=== PATIENT | female | born 1950 | race Caucasian/White ===

== ENCOUNTER 2018-05-27 14:27 | Outpatient (REF) | payer MEDICARE, BC, SELFPAY ==
--- NOTE | 2018-05-27 13:00 | PAPFT_PTH ---
PATIENT: Ami Granger LOC: [facility] U#:[id number] AGE/SX: 67/F ROOM: RE05/27/[address]: Mariely Uribe MD : [id number] BED: DIS: 05/27/2018 SPEC #: [id number] RECD: 05/28/18 12:56 STATUS: DEISY BROCK #: [id number] ISAC: 05/27/18 13:[address]: Mariely Uribe DEPT: [facility] Cytology RECD BY: Sandra Matthews Tissues: 1 - CX/ENDOCX FOR PAP SMEARS Procedures: PAP THIN PREP/UVM Screening HPV DNA PROBE Comments: [id number]
== END 2018-05-27 14:47 ==
LOC: LBN 14:27
PROVIDERS: PCP Family Medicine; Visit Provider Family Medicine
DX: Z12.4 Encounter for screening for malignant neoplasm of cervix (principal); Z11.51 Encounter for screening for human papillomavirus (HPV)
CPT/HCPCS: 88142; 87624

== ENCOUNTER 2019-08-24 01:09 | Outpatient (CLI) | payer MEDICARE, BC, SELFPAY ==
--- NOTE | 2019-08-24 07:45 | DI.MAMMO_ITS ---
EXAM: MAMMO SCREENING CLINICAL HISTORY: screening,Z12.39 TECHNIQUE: Mammograms were interpreted according to the usual protocol including computer analysis w [employer] CAD system, tomosynthesis and C-view imaging. COMPARISON: 2011 through 2016 FINDINGS: The breasts are composed of heterogeneously dense fibroglandular densities, Breast Density category C . No suspicious masses or suspicious microcalcifications are seen. No skin thickening or abnormal axillary lymph nodes are seen. There has been no significant change from prior exams. IMPRESSION: BI-RADS Category 1: Negative mammogram. Yearly screening mammography is recommended. Breast density category C, heterogeneously dense tissue which decreases the sensitivity of the mammog delbert. The mammogram demonstrates the patient's breast tissue is dense. Dense breast tissue is very common a nd is not abnormal but dense breast tissue can make it harder to find cancer on a mammogram. Also, de nse breast tissue may increase breast cancer risk. This information about the result of the mammogram report was provided to the patient to raise their awareness. Use this report when you speak with the patient about their risks for breast cancer, which includes their family history. At that time, you may recommend additional screening tests (Ultrasound or MRI) as they might be useful based on their r isk. A negative radiographic report should not delay biopsy if a dominant or clinically suspicious mass is present. Up to ten percent of cancers are not identified on mammography. A negative report may reinforce clinical impression. Adenosis and dense breasts may obscure an underlying neoplasm. False positive reports average 6 to 10%.
== END 2019-08-24 01:29 ==
PROVIDERS: PCP Family Medicine; Visit Provider Family Medicine
DX: Z12.31 Encounter for screening mammogram for malignant neoplasm of breast (principal)
CPT/HCPCS: 77063; 77067

== ENCOUNTER 2019-11-24 03:36 | Outpatient (CLI) | payer MEDICARE, BC, SELFPAY ==
[2019-11-24 12:54] LABS: Abs Immature Grans 0.01 10^3/uL (0.0-0.06); Absolute Basophil Count 0.12 10^3/uL (0.0-0.2); Absolute Eosinophil Count 0.14 10^3/uL (0.0-0.7); Absolute Lymphocyte Count 2.44 10^3/uL (1.2-3.4); Absolute Monocyte Count 0.43 10^3/uL (0.1-0.8); Absolute Neutrophil Count 2.02 10^3/uL (1.2-6.7); Basophils % 2.3; Eosinophils % 2.7; HCT 43.1 % (36.0-46.0); HGB 14.2 g/dL (11.2-15.7); Immature Grans % 0.2; Lymphocytes % 47.3; MCH 30.5 pg (27.0-33.0); MCHC 32.9 % (32.0-36.0); MCV 92.5 fL (80-95); MPV 10.9 fL (8.0-11.0); Monocytes % 8.3; Neutrophils % 39.2; Nucleated RBC 0 %; Platelet Count 318 10^3/uL (130-400); RBC 4.66 10^6/uL (3.93-5.22); RDW 12.3 % (11.7-14.6); RDW-SD 42.2 fL; WBC 5.16 10^3/uL (4.4-10.8)
[2019-11-24 13:30] LABS: ALT 19 U/L (14-59); AST 13 U/L (15-37); Albumin 4.1 g/dL (3.4-5.0); Alkaline Phosphatase 52 U/L (46-116); Anion Gap 6.6 mmol/L (3-11); BUN 19 mg/dL (7-18); Bilirubin, Total 0.5 mg/dL (0.2-1.0); CO2 27.4 mmol/L (21.0-32.0); CREATININE 0.69 mg/dL (0.55-1.02); Calcium 9.2 mg/dL (8.5-10.1); Chloride 106 mmol/L (98-107); Glucose 96 mg/dL (74-106); Potassium 4.5 mmol/L (3.5-5.1); Sodium 140 mmol/L (136-145)
[2019-11-24 14:13] LABS: ESR 9 mm/hr (0-30)
== END 2019-11-24 03:56 ==
PROVIDERS: PCP Family Medicine; Visit Provider Family Medicine
DX: R42 Dizziness and giddiness (principal); R03.0 Elevated blood-pressure reading, without diagnosis of hypertension; H55.00 Unspecified nystagmus
CPT/HCPCS: 36415; 80053; 85652; 85025

== ENCOUNTER 2019-11-29 02:16 | Outpatient (CLI) | payer MEDICARE, BC, SELFPAY ==
--- NOTE | 2019-11-29 07:00 | DI.MRI_ITS ---
EXAM: MR BRAIN WO CLINICAL HISTORY: vetigo with vertical nystagmus and ataxia, dizziness/giddiness, H55.00 TECHNIQUE: Multiplanar multisequence MRI of the brain was performed. COMPARISON: No exams were available for comparison FINDINGS: VENTRICLES AND EXTRA AXIAL SPACES: Normal in size and morphology for the patient's age. MIDLINE SHIFT: None. CEREBRAL PARENCHYMA: No focus of restricted diffusion to suggest acute infarct. No space-occupying le severino identified. HEMORRHAGE: None. BRAINSTEM/CEREBELLUM: Normal. CALVARIUM: Normal. VISUALIZED PARANASAL SINUSES/MASTOIDS:Clear. NIGHTMUTE OF AVERY: Normal flow void. PITUITARY GLAND: Unremarkable. OTHER FINDINGS: Posterior to the left pterygoid and left mandible there is an area which shows increa sed signal on the T2 weighted images and decreased signal on the T1 weighted images. It shows no fat suppression. There is minimal mass effect on the surrounding tissues. It extends laterally into th e region of the parotid gland. The adjacent musculature and osseous structures are unremarkable. IMPRESSION: 1. No acute intracranial process. No evidence of an acute infarct or intracranial mass. 2. Area in the extracranial soft tissues on the left as described above. Postcontrast MRI of the bra in is recommended for further evaluation. DATA REPOSITORY:
== END 2019-11-29 02:36 ==
PROVIDERS: PCP Family Medicine; Visit Provider Family Medicine
DX: R42 Dizziness and giddiness (principal); H55.00 Unspecified nystagmus
CPT/HCPCS: 70551

== ENCOUNTER 2020-02-16 00:21 | Outpatient (CLI) | payer MEDICARE, BC, SELFPAY ==
[2020-02-18 20:51] LABS: Patient Race White; SARS-CoV-2 RNA Undetected (Undetected); SARS-CoV-2 Specimen Source Nasal
== END 2020-02-16 00:41 ==
PROVIDERS: Family Medicine; PCP Family Medicine; Visit Provider Family Medicine
DX: Z11.59 Encounter for screening for other viral diseases (principal)
CPT/HCPCS: U0003

== ENCOUNTER 2020-06-01 03:40 | Outpatient (CLI) | payer MEDICARE, BC, SELFPAY ==
[2020-06-02 14:42] LABS: COVID-19 RT-PCR UVMMC Result Negative (Negative)
== END 2020-06-01 03:41 | disposition home or self-care (01) ==
LOC: LBO 03:41
PROVIDERS: PCP Family Medicine; Visit Provider Family Medicine
DX: Z20.822 Contact with and (suspected) exposure to COVID-19 (principal)
CPT/HCPCS: U0003; U0005

== ENCOUNTER 2020-06-19 17:28 | Emergency (ER) | payer MEDICARE, BC, SELFPAY ==
[2020-06-19] VITALS (13 sets, daily range): BP systolic 153–189; BP diastolic 68–92; PULSE 54–69; RESP 18–20; TEMP 36.9; O2SAT 89–100
--- NOTE | 2020-06-19 17:30 | RT.EKG_ITS ---
APPROVED REPORT Exam: Resting ECG Patient Location: E HR:61 bpm ECG Measurements Heart Rate 61 AXIS MN 147 P 43 QRSd 94 QRS 10 QT 424 T 17 QTc 427 Conclusion Sinus rhythm...normal P axis, V-rate 60- 99. Less than 1mm ST depression in V6. No STEMI. I have reviewed and interpreted ECG and agree with software generated interpretation.
--- NOTE | 2020-06-19 17:32 | ED.GENADUL_ITS ---
Discharge Plan Disposition Patient Disposition: HOME Condition: Stable Discharge Details Clinical Impression: Elevated BP without diagnosis of hypertension Primary Care Provider: Mariely Uribe ED Provider: Brenda Urena Home Meds and New Rx's Prescriptions: Continued timolol 0.25 % drops 1 drp OP BID RF: 0 Discharge Instructions Instructions: Stress (ED), How to Take a Blood Pressure (ED), Hypertension (ED) Additional Instructions: Your blood pressure came down quite a bit when you are relaxing. I am concerned that the elevation may be associated with stress and anxiety. Please try to find outlets to help reduce your stress. Please enjoy this neena weather. Please continue to take your blood pressure as was instructed by your primary care physician but trying states he has at times when you are more relaxed. Please call them tomorrow to discuss your visit today as well as your recent blood pressure readings and the possible need for antihypertensive medication. If you develop fevers/chills, headaches, visual changes, chest pain, shortness of breath or other new/worsening symptoms please seek care urgently once again. Referrals: Mariely Uribe MD [Primary Care Provider] - Medical Decision Making Patient is a pleasant 59-year-old female presenting today with chief complaint of hypertension. Patient has been being followed by primary care for elevated blood pressure and was advised at recent visit to continue to monitor this at home. Per recent primary care note, the patient blood pressure when at home is typically fairly well controlled with systolics typically in the 130s and diastolics in the 70s to 80s. Blood pressure in the office at recent visit was 153/93 with previous readings between 143/85, 169/82. Patient states that she tends to get very anxious and panic when she does see a physician as she has not been followed by physician routinely throughout her life. She does report a number of family members with hypertension. She states that recently she has been very stressed and associates this with COVID-19 and limited access to her family as well as family members being sick. Patient also reports that she recently got her initial vaccine which is also made her very anxious. She denies any visual changes, change in urinary habits, headaches. She does state that she is been having some chest pressure and indicates the central aspect of her chest. She states that this does feel like GERD that she has had historically. However, she is found to have this more when she is stressed such as when she can go to sleep first wakes in the morning. She states that during these times, she can become very anxious and is actually having difficulty falling asleep. Pain does not radiate. No palpitations. No nausea or vomiting. No change in appetite. No change in weight. On exam, patient appears anxious. Her initial blood pressure was 189/92. She is currently asymptomatic. Exam is reassuring, lungs are clear, normal cardiac exam. No lower extremity edema. While chatting with the patient, her blood pressure did continue to come down such that I was in chatting with her, her blood pressure is 153/80. Patient I discussed treatment options. I do not see any reason to aggressively manage her blood pressure she is not imminently e xhibiting any endorgan damage. However, she has been having this intermittent chest discomfort, plan is to obtain baseline labs to include troponin. Will obtain EKG. EKG was obtained and reviewed by Dr. Gallardo. Patient is in normal sinus rhythm with a rate of 61. She advises no acute ischemic changes. Patient had initially been in agreement with sylvia Etienne to help with some of her anxiety. She would like to hold off now on this intervention. Differential diagnosis at this time is highest for asymptomatic hypertension. Some of this hypertension may be driven by the patient's anxiety and stress as this was a large amount of what we discussed. She has been having some chest discomfort but is unclear if this is truly GERD, as the patient had described it, or associated with stress. ACS is on the differential but quite low as this is not found to be exertionally driven. Patient does walk frequently and has not been having any chest pain associated with this. Her history exam is not consistent with dissection, PE. Patient does not express of self-harm. Labs reviewed. No leukocytosis. Stable H&H. No significant abnormalities on CMP. Troponin within normal limits. Discussed these findings with the patient. She is feeling much calmer at this time. She was interested to watch her blood pressure based on her anxiety level as she has been on the monitor here. She has noted a large increase when she became more stressed such as when her blood was being drawn. She will try to reduce her stress. We did discuss anxiety lytic techniques. She is I also discussed starting an antihypertensive based on the readings that she has been getting at home. However, she would like to hold off and discuss this further with her primary care. Nursing staff did compare patient's home monitor to ours and did find a 10 point difference in the systolic with a home BP cuff being higher. Patient was given return precautions. We did discuss signs of hypertensive emergency. All of her questions and concerns were addressed and she is in agreement this plan. HPI General Mode of arrival: ambulatory . Date/Time Provider Initiated Documentation: 06/19/20 17:32 . Limitations to Documentation: no limitations . Information obtained by: patient and RN notes reviewed . History of Present Illness 69 year old F presents to the emergency department with the chief co mplaint of concerned for elevated BP, described as mild (mild intermittent CP) and moderate, Quality is described as aching, and is localized to the chest. Patient reports no radiation. Patient started experiencing this day(s) (06/07/20) and it has been intermittent and now resolved. No relieving factors improve symptom(s), Other factors that worsen symptoms (stress, worse at night when mind is racing) . Patient notes chest pain; denies cough, fever/chills, headaches, loss of appetite, nausea/vomiting, rash, shortness of breath and weakness. Patient did receive the following treatments prior to arrival, none Related Data Home Medications Medication Instructions Recorded Confirmed timolol 0.25 % eye drops 1 drp OP BID 05/27/18 06/19/20 Allergies Allergy/AdvReac Type Severity Reaction Status Date / Time No Known Allergies Allergy Unverified 06/19/20 17:37 Review of Systems Constitutional Constitutional: Reports as per HPI, Denies chills, Denies fever(s), Denies headache(s), Denies lethargy and Denies poor appetite Eyes Eyes: Denies change in vision ENT Ears, Nose, Mouth, and Throat: Denies dizziness and Denies headache(s) Cardiovascular Cardiovascular: Reports as per HPI, Reports chest pain (slight pressure intermittent, worse with stress/anxiety), Denies leg ulcers, Denies leg edema, Denies radiating jaw, neck or arm pain, Denies palpitations, Denies dyspnea and Denies dyspnea on exertion Respiratory Respiratory: Reports as per HPI, Denies chest congestion, Denies cough, Denies pain on inspiration, Denies pain with cough, Denies dyspnea, Denies dyspnea on exertion and Denies wheezing Gastrointestinal Gastrointestinal: Reports as per HPI, Denies abdominal pain, Denies diarrhea, Denies nausea and Denies vomiting Musculoskeletal Musculoskeletal: Reports as per HPI and Denies back pain Integumentary/Breasts Skin/Breast: Reports as per HPI and Denies rash Neurologic Neurologic: Reports as per HPI, Denies dizziness and Denies headache(s) Psychiatric Psychiatric: Reports abnormal sleep pattern (difficulty falling asleep, feels like her brain is too busy), Reports anxiety, Denies change in appetite and Reports anhedonia Endocrine Endocrine: Denies palpitations Allergic/Immunologic Allergic/Immunologic: Denies wheezing PFSH Family History Mother Essential hypertension Diabetes Colon cancer Father , 56 H/O cancer of gall bladder Pancreatic cancer Sister No problems noted. Sister Thyroid cancer Sister , Acute alcoholism 51 Alcohol abuse Brother No problems noted. Brother No problems noted. Maternal Grandfather , 90 Essential hypertension Diabetes Maternal Grandmother , 83 Essential hypertension Diabetes Paternal Grandmother , age 77 Abdominal malignancy ?pancreatic cancer Son Migraines Daughter No problems noted. Paternal Grandfather , age 49 - MVA No problems noted. Social History Smoking/Tobacco Use Status: Never Smoking risk assessment performed?: Yes Alcohol Intake: current Alcohol Intake frequency: a few times a month Drug use: Never Substance use type: does not use Adopted: No Caregiver/Support person: No Household members: spouse Housing: house Communication Needs: None Do you need help understanding health information?: Rarely Pets and animals: Yes Pets and animals: cat(s) Sexually active: Yes Do you think of yourself as: straight/heterosexual Current gender identity: female What is your relationship status?: How often do you talk on the phone with friends or family?: three or more times per week How often do you get together with friends or relatives?: twice per week How often do you attend latter-day or sabianist services?: 4 or more times per year Do you belong to any clubs or organized social groups?: yes Panel score (0-1 are the most socially isolated patients): 4 What type of physical activity do you participate in: walking, bicycling and swimming Duration: 15-30 minutes/day Frequency: 3-4 times per week Mary/Adventism: Zoroastrianism Special mary needs: No Seatbelt use: always Helmet use: Yes Helmet use: sometimes Drive intox or ride w/intox snaker tractor driver: No Do you feel safe at home: Yes Do you feel safe in your relationship?: Yes Exam Const General: cooperative, healthy appearing, comfortable, no acute distress, well developed and anxious Nutritional Appearance: average body habitus and well nourished Orientation: alert, awake and oriented x3 HENMT Head: normal to inspection Ears: hearing grossly normal bilaterally Mouth: moist mucous membranes Chest Chest: normal inspection of the chest, normal palpation of entire chest wall and no crepitus Resp Effort & Inspection: normal respiratory effort, able to speak in complete sentences and no respiratory distress Auscultation: clear to auscultation bilaterally, no rales, no rhonchi and no wheezes Cardio Rate: regular rate Rhythm: regular rhythm Heart Sounds: S1 normal and S2 normal Skin General skin exam: no rashes or lesions noted Trauma: no lacerations or abrasions Neuro General: patient alert, patient awake and patient oriented x3 Cognition: normal cognition Speech: speech normal Gait: normal gait Extrem General: normal to inspection, capillary refill normal, no pedal edema, no calf tenderness and normal gait Psych Appearance: grossly normal and well kempt Mental Status: mental status grossly normal Speech and Movement: speech and movement normal
--- NOTE | 2020-06-19 18:00 | DI.RAD_ITS ---
EXAM: XR CHEST 2V PA LATERAL CLINICAL HISTORY: CP TECHNIQUE: 2D digital imaging was performed. COMPARISON: No exams were available for comparison FINDINGS: MEDIASTINUM: Normal. HEART: Normal. PULMONARY VASCULATURE: Normal. LUNGS: Clear. PLEURAL SPACE: No pleural effusion or pneumothorax. BONE:Within normal limits for the patient's age. OTHER FINDINGS:Normal. IMPRESSION: No acute pulmonary findings. DATA REPOSITORY: RADIATION DOSE DELIVERED:
[2020-06-19 18:37] LABS: Abs Immature Grans 0.02 10^3/uL (0.0-0.06); Absolute Basophil Count 0.12 10^3/uL (0.0-0.2); Absolute Eosinophil Count 0.21 10^3/uL (0.0-0.7); Absolute Lymphocyte Count 2.34 10^3/uL (1.2-3.4); Absolute Monocyte Count 0.48 10^3/uL (0.1-0.8); Absolute Neutrophil Count 2.73 10^3/uL (1.2-6.7); Eosinophils % 3.6; HCT 41.3 % (36.0-46.0); HGB 13.6 g/dL (11.2-15.7); Immature Grans % 0.3; Lymphocytes % 39.7; MCH 30.8 pg (27.0-33.0); MCHC 32.9 % (32.0-36.0); MCV 93.7 fL (80-95); Monocytes % 8.1; Neutrophils % 46.3; Nucleated RBC 0 %; Platelet Count 295 10^3/uL (130-400); RBC 4.41 10^6/uL (3.93-5.22); RDW 12.1 % (11.7-14.6); RDW-SD 42.2 fL
[2020-06-19 18:54] LABS: ALT 25 U/L (14-59); AST 13 U/L (15-37); Albumin 3.8 g/dL (3.4-5.0); Alkaline Phosphatase 52 U/L (46-116); BUN 17 mg/dL (7-18); Bilirubin, Total 0.4 mg/dL (0.2-1.0); CREATININE 0.8 mg/dL (0.55-1.02); Calcium 8.8 mg/dL (8.5-10.1); Chloride 106 mmol/L (98-107); Glucose 107 mg/dL (74-106); Magnesium 2.1 mg/dL (1.8-2.4); Potassium 3.8 mmol/L (3.5-5.1); Sodium 142 mmol/L (136-145)
[2020-06-19 18:55] LABS: Troponin I < 0.05 ng/mL (<0.06)
--- NOTE | 2020-06-19 19:26 | DI.VRAD_ITS ---
PROCEDURE INFORMATION: Exam: XR Chest Exam date and time: 06/19/2020 7:00 PM Age: 69 years old Clinical indication: Chest pain; Patient HX: Cp TECHNIQUE: Imaging protocol: XR of the chest Views: 2 views. COMPARISON: No relevant prior studies available. FINDINGS: Lungs: Unremarkable. No consolidation. Pleural spaces: Unremarkable. No pleural effusion. No pneumothorax. Heart/Mediastinum: Unremarkable. No cardiomegaly. Bones/joints: Degenerative thoracic spine changes. Disc degeneration and mild scoliosis features.. IMPRESSION: 1. No acute findings. 2. Clear lungs and pleural space. 3. Degenerative thoracic spine disease. Dictated and Authenticated by: Del Lee MD. Ordering:JOCELYNN Gutierrez MD
== END 2020-06-19 19:25 | disposition home or self-care (01) ==
PROVIDERS: Emergency Provider Physician Assistant; PCP Family Medicine
DX: R03.0 Elevated blood-pressure reading, without diagnosis of hypertension (principal); R07.89 Other chest pain
CPT/HCPCS: 36415; 80053; 93005; 99284; 71046; 83735; 84484; 85025; 93010; 99285

== ENCOUNTER 2020-06-22 02:37 | Outpatient (CLI) | payer MEDICARE, BC, SELFPAY ==
[2020-06-23 12:35] LABS: COVID-19 RT-PCR UVMMC Result Negative (Negative)
== END 2020-06-22 02:38 | disposition home or self-care (01) ==
LOC: LBO 02:37
PROVIDERS: PCP Family Medicine; Visit Provider Family Medicine
DX: Z20.822 Contact with and (suspected) exposure to COVID-19 (principal)
CPT/HCPCS: U0003; U0005

== ENCOUNTER 2020-08-25 02:46 | Outpatient (CLI) | payer MEDICARE, BC, SELFPAY ==
--- NOTE | 2020-08-25 08:45 | DI.MAMMO_ITS ---
Exam(s) MAMMO SCREENING EXAM: MAMMO SCREENING CLINICAL HISTORY: screening,Z12.39 TECHNIQUE: Mammograms were interpreted according to the usual protocol including computer analysis w [employer] CAD system, tomosynthesis and C-view imaging. COMPARISON: FINDINGS: The breasts are heterogeneously dense with fairly symmetrical distribution of fibroglandular tissue. No dominant mass or clumped microcalcification is identified in either breast. The current examinat ion is compared with previous examinations including July 2019 and there has been no gross interval ch brenden in appearance in comparison with the prior studies. IMPRESSION: No specific evidence of malignancy at this time. Routine screening examinations are suggested at yea rly intervals in this age group according to the ACS ACR guidelines. BI-RADS Category 1 - Negative Breast Density - Category C - Heterogeneously dense
== END 2020-08-25 03:06 ==
PROVIDERS: PCP Family Medicine; Visit Provider Family Medicine
DX: Z12.31 Encounter for screening mammogram for malignant neoplasm of breast (principal)
CPT/HCPCS: 77063; 77067

== ENCOUNTER 2021-06-20 02:41 | Outpatient (CLI) | payer MEDICARE, SELFPAY | END 2021-06-20 02:42 | disposition home or self-care (01) | LOC: LBO 02:41 | PROVIDERS: PCP Family Medicine; Visit Provider Family Medicine ==

== ENCOUNTER 2021-07-04 02:45 | Outpatient (CLI) | payer MEDICARE, SELFPAY ==
[2021-07-04 09:06] LABS: ALT 26 U/L (14-59); AST 17 U/L (15-37); Albumin 3.7 g/dL (3.4-5.0); Alkaline Phosphatase 53 U/L (46-116); Anion Gap 8.7 mmol/L (3-11); BUN 25 mg/dL (7-18); Bilirubin, Total 0.6 mg/dL (0.2-1.0); CO2 28.3 mmol/L (21.0-32.0); CREATININE 0.8 mg/dL (0.55-1.02); Calcium 8.9 mg/dL (8.5-10.1); Calculated LDL 151 mg/dL (<100); Chloride 105 mmol/L (98-107); Cholesterol 251 mg/dL (<200); Glucose 99 mg/dL (74-106); HDL Cholesterol 83 mg/dL (40-60); Sodium 142 mmol/L (136-145); Total Protein 6.6 g/dL (6.4-8.2); Triglyceride 89 mg/dL (<150)
== END 2021-07-04 02:46 | disposition home or self-care (01) ==
LOC: LBO 02:45
PROVIDERS: PCP Family Medicine; Visit Provider Family Medicine
DX: I10 Essential (primary) hypertension (principal)
CPT/HCPCS: 36415; 80053; 80061

== ENCOUNTER 2022-05-20 03:24 | Outpatient (CLI) | payer MEDICARE, SELFPAY ==
[2022-05-20 13:02] LABS: ALT 23 U/L (14-59); AST 18 U/L (15-37); Albumin 3.9 g/dL (3.4-5.0); Alkaline Phosphatase 51 U/L (46-116); Anion Gap 10.9 mmol/L (3-11); BUN 22 mg/dL (7-18); Bilirubin, Total 0.5 mg/dL (0.2-1.0); CO2 26.1 mmol/L (21.0-32.0); Calcium 9.2 mg/dL (8.5-10.1); Chloride 105 mmol/L (98-107); Estimated GFR 60.98 (mL/min/1.73m2); Glucose 107 mg/dL (74-106); Potassium 3.9 mmol/L (3.5-5.1); Sodium 142 mmol/L (136-145)
== END 2022-05-20 03:25 | disposition home or self-care (01) ==
LOC: LOS 03:24
PROVIDERS: PCP Family Medicine; Visit Provider Family Medicine
DX: I10 Essential (primary) hypertension (principal)
CPT/HCPCS: 36415; 80053

== ENCOUNTER 2022-08-09 00:08 | Outpatient (CLI) | payer MEDICARE, SELFPAY ==
--- NOTE | 2022-08-09 08:45 | DI.MAMMO_ITS ---
Exam(s) MAMMO SCREENING EXAM: MAMMO SCREENING CLINICAL HISTORY: screening,Z12.39 TECHNIQUE: Mammograms were interpreted according to the usual protocol including computer analysis w [employer] CAD system, tomosynthesis and C-view imaging. COMPARISON: 2012 through 2020 FINDINGS: The breasts are composed of heterogeneously dense fibroglandular densities, Breast Density category C . No suspicious masses or suspicious microcalcifications are seen. No skin thickening or abnormal axillary lymph nodes are seen. There has been no significant change from prior exams. IMPRESSION: BI-RADS Category 1, Negative mammogram. Yearly screening mammography is recommended. Breast Density Category C, heterogeneously Dense. The mammogram demonstrates the patient's breast tissue is dense. Dense breast tissue is very common a nd is not abnormal but dense breast tissue can make it harder to find cancer on a mammogram. Also, de nse breast tissue may increase breast cancer risk. This information about the result of the mammogram report was provided to the patient to raise their awareness. Use this report when you speak with the patient about their risks for breast cancer, which includes their family history. At that time, you may recommend additional screening tests (Ultrasound or MRI) as they might be useful based on their r isk. A negative radiographic report should not delay biopsy if a dominant or clinically suspicious mass is present. Up to ten percent of cancers are not identified on mammography. A negative report may reinforce clinical impression. Adenosis and dense breasts may obscure an underlying neoplasm. False positive reports average 6 to 10%.
--- NOTE | 2022-08-09 14:52 | DI.DEXA_ITS ---
Exam(s) XR DEXA BONE DENSITY W/WO GALA EXAM: XR DEXA BONE DENSITY W/WO GALA CLINICAL HISTORY: screening,MENOPAUSAL DISORDER,N95.9 TECHNIQUE: [employer] C densitometer analysis of left hip, lumbar spine and left forearm. Lat eral survey image of the thoracic and lumbar spine. COMPARISON: No exams were available for comparison FINDINGS: Lateral view of the thoracic and lumbar spine shows no evidence of compression fractures. Bone mineral density measurements of the lumbar spine correspond to a total T-score of -0.6, in the normal range. Bone mineral density measurements of the left hip correspond to a total T-score of -1.5. The femora l neck T-score is -1.7, in the osteopenic range.. The left forearm bone mineral density measurements correspond to a T-score of the distal 3rd of 0.3, in the normal range.. IMPRESSION: Osteopenia of the left hip. Normal bone density of the spine and forearm.
== END 2022-08-09 00:28 ==
LOC: DI 00:08
PROVIDERS: PCP Family Medicine; Visit Provider Family Medicine
DX: Z12.31 Encounter for screening mammogram for malignant neoplasm of breast (principal); N95.8 Other specified menopausal and perimenopausal disorders
CPT/HCPCS: 77063; 77067; 77080

== ENCOUNTER 2022-08-26 15:13 | Outpatient (REF) | payer MEDICARE, SELFPAY ==
[2022-08-26 18:30] LABS: Bilirubin Negative (Negative); Blood Large (Negative); Clarity Cloudy (Clear); Glucose Negative (Negative); Ketones 15 mg/dL (Negative); Leukocyte Esterase Small (Negative); Nitrite Positive (Negative); Specific Gravity 1.025 (1.005-1.025); Urobilinogen 0.2 mg/dL (Up to 0.2); pH 5.5 (5-8)
[2022-08-26 18:41] LABS: WBC >50 HPF (0-5)
[2022-08-26 18:42] LABS: Bacteria Moderate HPF (Negative); C & S Indicated? Yes; Casts Negative LPF (Negative); Crystals Negative HPF (Negative); Epithelial Cells Rare HPF (Negative); Mucus Negative (Negative); RBC 20-50 HPF (0-2)
== END 2022-08-26 15:14 | disposition home or self-care (01) ==
LOC: LBN 15:13
PROVIDERS: PCP Family Medicine; Visit Provider Nurse Practitioner Family
DX: R30.0 Dysuria (principal); R35.0 Frequency of micturition; N39.0 Urinary tract infection, site not specified
CPT/HCPCS: 87077; 81003; 81015; 87086; 87186

== ENCOUNTER 2023-06-18 10:15 | Outpatient (CLI) | payer MEDICARE, SELFPAY ==
[2023-06-18 12:58] LABS: Anion Gap 8.5 mmol/L (3-11); BUN 23 mg/dL (7-18); CO2 28.5 mmol/L (21.0-32.0); CREATININE 0.9 mg/dL (0.55-1.02); Calcium 9.4 mg/dL (8.5-10.1); Calculated LDL 166 mg/dL (<100); Chloride 106 mmol/L (98-107); Cholesterol 266 mg/dL (<200); Estimated GFR 68.77 (mL/min/1.73m2); Glucose 108 mg/dL (74-106); HDL Cholesterol 82 mg/dL (40-60); Potassium 4.8 mmol/L (3.5-5.1); Sodium 143 mmol/L (136-145); Triglyceride 91 mg/dL (<150)
[2023-06-19 09:35] LABS: Hepatitis C Ab w Rflx HCV PCR Negative (Negative)
== END 2023-06-18 10:16 | disposition home or self-care (01) ==
LOC: LOS 10:15
PROVIDERS: PCP Family Medicine; Referring Provider Family Medicine; Visit Provider Family Medicine
DX: I10 Essential (primary) hypertension (principal); R79.89 Other specified abnormal findings of blood chemistry; Z11.59 Encounter for screening for other viral diseases
CPT/HCPCS: 36415; 80048; 80061; 86803

== ENCOUNTER 2023-06-23 10:00 | Emergency (ER) | payer MEDICARE, SELFPAY ==
--- NOTE | 2023-06-23 10:00 | RT.EKG_ITS ---
APPROVED REPORT Exam: Resting ECG Reason for Exam: chest pain Patient Location: E HR:59 bpm ECG Measurements Heart Rate 59 AXIS ME 40 P 0 QRSd 95 QRS 23 QT 424 T 13 QTc 421 Conclusion Sinus bradycardia...rate< 60 Ventricular premature complex...V complex w/ short R-R interval
[2023-06-23 10:06] VITALS: BP 174/74; PULSE 62; RESP 18; O2SAT 100
[2023-06-23 10:10] VITALS: RESP 18
[2023-06-23 10:28] LABS: Abs Immature Grans 0.02 10^3/uL (0.0-0.06); Absolute Basophil Count 0.14 10^3/uL (0.0-0.2); Absolute Eosinophil Count 0.14 10^3/uL (0.0-0.7); Absolute Lymphocyte Count 1.68 10^3/uL (1.2-3.4); Absolute Monocyte Count 0.48 10^3/uL (0.1-0.8); Absolute Neutrophil Count 3.91 10^3/uL (1.2-6.7); Basophils % 2.2; Eosinophils % 2.2; HCT 43.4 % (36.0-46.0); HGB 14.1 g/dL (11.2-15.7); Immature Grans % 0.3; Lymphocytes % 26.4; MCH 30.9 pg (27.0-33.0); MCHC 32.5 % (32.0-36.0); MCV 95 fL (80-95); Monocytes % 7.5; Neutrophils % 61.4; Platelet Count 287 10^3/uL (130-400); RBC 4.57 10^6/uL (3.93-5.22); RDW 12.2 % (11.7-14.6); WBC 6.37 10^3/uL (4.4-10.8)
[2023-06-23] MEDS: Acetaminophen 500 MG TAB 1000 MG PO (10:36)
[2023-06-23 10:41] LABS: INR 1.1 (0.9-1.1); PTT Activated 27.2 sec (23.6-32.8); Prothrombin Time 10.9 sec (9.1-11.1)
--- NOTE | 2023-06-23 10:41 | W.ED.GENAD ---
Discharge Plan Disposition Patient Disposition: Home Condition: Stable Discharge Details Clinical Impression: Contusion of rib, Chest pain Primary Care Provider: Marielos Gee ED Provider: Julian Lincoln Home Meds and New Rx's Prescriptions: Continued timolol 0.25 % drops 1 drp OP DAILY lisinopril-hydrochlorothiazide 10-12.5 mg tablet 1 tab PO DAILY Qty: 90 3RF atorvastatin 20 mg tablet 20 mg PO QHS Qty: 90 3RF Discharge Instructions Instructions: Rib Contusion (ED) Additional Instructions: Your EKG, lab work and CAT scan did not show concerning findings at this time Follow-up with your primary care provider if not better within a week Feel more ill, have severe worsening pain or new symptoms such as high fevers return to the emergency department for reevaluation HPI General Mode of arrival: ambulatory. Date/Time Provider Initiated Documentation: 06/23/23 10:00. Limitations to Documentation: no limitations. Information obtained by: patient. History of Present Illness 72 year old F presents to the emergency department with the chief complaint of left sided chest pain s/p fall, described as moderate, Quality is described as aching, and is localized to the chest. Patient reports no radiation. and it has been constant. No relieving factors improve symptom(s), No exacerbating factors reported . Patient notes no other symptoms.; denies fever/chills. Patient did receive the following treatments prior to arrival, none Related Data Home Medications Medication Instructions Recorded Confirmed timolol 0.25 % eye drops 1 drp ophthalmic (eye) DAILY 06/12/22 06/23/23 lisinopril 10 1 tab PO DAILY #90 tabs 05/13/23 06/23/23 mg-hydrochlorothiazide 12.5 mg tablet atorvastatin 20 mg tablet 20 mg PO QHS #90 tabs 06/20/23 06/23/23 Previous Rx's Medication Instructions Recorded lisinopril 10 1 tab PO DAILY #90 tabs 05/13/23 mg-hydrochlorothiazide 12.5 mg tablet atorvastatin 20 mg tablet 20 mg PO QHS #90 tabs 06/20/23 Allergies Allergy/AdvReac Type Severity Reaction Status Date / Time No Known Allergies Allergy Verified 06/23/23 10:12 General Stated Complaint: Chest Pain YULIA: 3 Review of Systems All systems reviewed & are unremarkable except as noted in HPI and below Constitutional Constitutional: Denies chills, Denies fever(s) and Denies weakness Cardiovascular Cardiovascular: Reports chest pain and Denies dyspnea Respiratory Respiratory: Denies cough and Denies dyspnea Gastrointestinal Gastrointestinal: Denies abdominal pain, Denies nausea and Denies vomiting Musculoskeletal Musculoskeletal: Denies joint swelling Neurologic Neurologic: Denies weakness Psychiatric Psychiatric: Denies depression Exam Const General: no acute distress Orientation: alert HENMT Head: normal to inspection Ears: external ears normal General nose exam: external nose normal Mouth: moist mucous membranes Eyes General: appearance normal, both eyes and all related structures Neck Neck: normal visual inspection Chest Chest: no crepitus and tenderness Resp Effort & Inspection: normal respiratory effort and able to speak in complete sentences Auscultation: clear to auscultation bilaterally Cardio Jugular venous pressure: no JVD Rate: regular rate Heart Sounds: no murmurs GI Palpation: soft and nontender Skin General skin exam: no rashes or lesions noted Neuro General: patient alert and patient oriented x3 Extrem General: normal to inspection Psych Mental Status: mental status grossly normal Course Vital Signs Vital signs: Vital Signs Pulse 62 06/23/23 10:06 Respiratory Rate 18 06/23/23 10:06 Blood Pressure 174/74 H 06/23/23 10:06 Pulse Oximetry 100 06/23/23 10:06 Pulse 62 06/23/23 10:06 Respiratory Rate 18 06/23/23 10:10 Respiratory Effort Normal 06/23/23 10:10 Respiratory Depth Normal 06/23/23 10:10 Respiratory Pattern Normal 06/23/23 10:10 Blood Pressure 174/74 H 06/23/23 10:06 Blood Pressure Position Sitting 06/23/23 10:06 Pulse Oximetry 100 06/23/23 10:06 Oxygen Delivery Method Room Air 06/23/23 10:06 Oxygen Flow Rate 0 06/23/23 10:06 Lab/Test Results Lab/Test Results: Laboratory Tests Range/Units 06/23/23 10:20 WBC (4.4-10.8) 10^3/uL 6.37 RBC (3.93-5.22) 10^6/uL 4.57 Hgb (11.2-15.7) g/dL 14.1 Hct (36.0-46.0) % 43.4 MCV (80-95) fL 95 MCH (27.0-33.0) pg 30.9 MCHC (32.0-36.0) % 32.5 RDW (11.7-14.6) % 12.2 Plt Count (130-400) 10^3/uL 287 MPV (8.0-11.0) fL 10.0 Immature Gran % 0.3 Neutrophils % 61.4 Lymphocytes % 26.4 Monocytes % 7.5 Eosinophils % 2.2 Basophils % 2.2 Nucleated RBC % (0.0-0.3) % 0.0 Absolute Neutrophils (1.2-6.7) 10^3/uL 3.91 Absolute Lymphocytes (1.2-3.4) 10^3/uL 1.68 Absolute Monocytes (0.1-0.8) 10^3/uL 0.48 Absolute Eosinophils (0.0-0.7) 10^3/uL 0.14 Absolute Basophils (0.0-0.2) 10^3/uL 0.14 Medical Decision Making 72-year-old female with a history of hypertension, hyperlipidemia, states she was in a hot tub on Friday felt lightheaded stood up and fell over landing on her left side. She has had left-sided chest pain where she landed and hit the hot tub since so came here for evaluation. Is any fevers, difficulty breathing unless she takes a deep breath because of pain in the left anterior chest. She has no visible or palpable deformities of the chest wall but is tender in the left anterior chest over the second and third ribs in the midclavicular line. She has clear lung sounds, no murmurs, no JVD or leg swelling. No calf tenderness. Suspect rib fracture versus contusion, will check CBC, CMP, troponin, and obtain CT of the chest to evaluate for pneumothorax versus rib fracture. The pain started after falling and hitting her chest and she has no tearing back pain so doubt dissection and she has no tachycardia or hypoxia or evidence of DVT on exam to suggest PE. Labs and imaging unremarkable, patient stable, given over 3 hours of symptoms do not feel delta troponin indicated. She is stable for discharge, advised to follow-up with her primary care provider and return precautions given Differential Diagnosis Differential Diagnosis: Rib contusion/fracture, pneumothorax Imaging Data Radiologic Study: Attestation: I personally reviewed and interpreted this imaging study as follows: Imaging: CT Scan Radiologist's impression: No acute findings Lab Data Lab results reviewed: Yes I reviewed the patient's lab results. ECG Data Attestation: I personally reviewed and interpreted this ECG (s) as follows: Prior ECG tracings: available for review Interpretation: Sinus rhythm, rate of 60, WI 48, no STEMI, PVCs Quality:SDOH Health Related Social Needs: No Data to Display PFSH All Active Problems (Updated 06/23/23 @ 11:36 by Julian Lincoln MD) Chest pain (Acute) Contusion of rib (Acute) Osteopenia of hip (Acute ~08/09/22) Hyperlipidemia (Chronic) 06/2021- AHA 7% risk Elevated IOP (Chronic) Followed by ophthalmology - [place] Essential hypertension (Chronic) Medical History (Updated 06/23/23 @ 11:36 by Julian Lincoln MD) Macular hole, right eye unchanged over time; ophtho follows pressures closely. Bradycardia chronic, mild, asymptomatic-no work-up indicated Family History (Updated 06/18/23 @ 09:53 by Marielos Gee MD) Mother , age 90 Essential hypertension Diabetes Colon cancer Father , 56 H/O cancer of gall bladder Pancreatic cancer Sister No problems noted. Sister Thyroid cancer Sister , Acute alcoholism 51 Alcohol abuse Brother No problems noted. Brother No problems noted. Maternal Grandfather , 90 Essential hypertension Diabetes Maternal Grandmother , 83 Essential hypertension Diabetes Paternal Grandmother , age 77 Abdominal malignancy ?pancreatic cancer Son Migraines Daughter No problems noted. Paternal Grandfather , age 49 - MVA No problems noted. 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 Pets and animals: Yes Pets and animals: cat(s) Sexually active: Yes Do you think of yourself as: straight/heterosexual Current gender identity: female What is your relationship status?: How often do you talk on the phone with friends or family?: three or more times per week How often do you get together with friends or relatives?: twice per week How often do you attend druze or christian services?: 4 or more times per year Do you belong to any clubs or organized social groups?: yes Panel score (0-1 are the most socially isolated patients): 4 What type of physical activity do you participate in: walking, bicycling and swimming Duration: 15-30 minutes/day Frequency: 3-4 times per week Mary/Christian: Anglican Special mary needs: No Seatbelt use: always Helmet use: Yes Helmet use: sometimes Drive intox or ride w/intox driver's license reviewing officer: No Do you feel safe at home: Yes Do you feel safe in your relationship?: Yes Additional Social history: Enjoys reading, knitting, sewing and quilting. Swimming in the summer.
[2023-06-23 10:53] LABS: ALT 22 U/L (14-59); AST 20 U/L (15-37); Alkaline Phosphatase 54 U/L (46-116); Anion Gap 10.2 mmol/L (3-11); BUN 22 mg/dL (7-18); Bilirubin, Total 0.5 mg/dL (0.2-1.0); CO2 26.8 mmol/L (21.0-32.0); CREATININE 0.9 mg/dL (0.55-1.02); Calcium 9.3 mg/dL (8.5-10.1); Chloride 103 mmol/L (98-107); Estimated GFR 68.77 (mL/min/1.73m2); Glucose 126 mg/dL (74-106); Lipase 34 U/L (16-77); Magnesium 1.9 mg/dL (1.8-2.4); Potassium 3.9 mmol/L (3.5-5.1); Sodium 140 mmol/L (136-145); Total Protein 7.6 g/dL (6.4-8.2); Troponin I < 50 ng/L (< or =60)
--- NOTE | 2023-06-23 10:55 | DI.CT_ITS ---
Exam(s) CT CHEST WO EXAM: CT CHEST WO CLINICAL HISTORY: left sided chest pain s/p fall TECHNIQUE: Imaging Protocol: Axial computed tomography images with coronal and sagittal reformatted images were created and reviewed CONTRAST MATERIAL: Noncontrast COMPARISON: CR,XR XR CHEST 2V PA LATERAL from 06/19/2020 FINDINGS: Pulmonary parenchyma: No consolidation. No dominant measurable mass. Mild scarring right middle lobe . Tracheobronchial tree: No bronchiectasis or mucous plugging. Mediastinum and Radha: No dominant adenopathy or fluid collection. Pleura: No effusion. No pneumothorax. Heart: The heart is not dilated. Mild coronary artery calcifications are seen. Aorta: Thoracic aorta non-dilated. Mild atherosclerotic changes. Upper abdomen: No acute findings.. Bones: No fracture or other rib abnormality identified. Milddegenerative changes in the spine. Soft tissues: Unremarkable. No chest wall hematoma. IMPRESSION: No acute abnormality. No rib or chest wall abnormality identified. RADIATION DOSE DELIVERED: Total DLP DATA REPOSITORY: All CT scans at this facility are submitted to the National Radiology Data Registry (NRDR) Dose Index Registry (DIR) with the [employer] (ACR). RADIATION OPTIMIZATION: All CT scans at this facility use at least one of these dose optimization te chniques: automated exposure control; mA and/or kV adjustment per patient size (includes targeted exa ms where dose is matched to clinical indication); or iterative reconstruction.
== END 2023-06-23 11:50 | disposition home or self-care (01) ==
PROVIDERS: Emergency Provider Emergency Medicine; PCP Family Medicine
DX: S20.212A Contusion of left front wall of thorax, initial encounter (principal); I10 Essential (primary) hypertension; E78.5 Hyperlipidemia, unspecified; R00.1 Bradycardia, unspecified; W18.39XA Other fall on same level, initial encounter; Y93.89 Activity, other specified; Y92.018 Other place in single-family (private) house as the place of occurrence of the external cause
CPT/HCPCS: 71250; 80053; 83690; 93005; 99285; 83735; 84484; 85025; 85610; 85730; 93010; 99284

== ENCOUNTER 2024-06-23 09:49 | Outpatient (CLI) | payer MEDICARE, SELFPAY ==
[2024-06-23 12:42] LABS: Anion Gap 5.7 mmol/L (3-11); BUN 19 mg/dL (7-18); CO2 29.3 mmol/L (21.0-32.0); CREATININE 0.9 mg/dL (0.55-1.02); Calcium 9.6 mg/dL (8.5-10.1); Calculated LDL 69 mg/dL (<100); Chloride 107 mmol/L (98-107); Cholesterol 171 mg/dL (<200); Estimated GFR 68.35 (mL/min/1.73m2); Glucose 107 mg/dL (74-106); HDL Cholesterol 89 mg/dL (>or=50); Potassium 4.8 mmol/L (3.5-5.1); Sodium 142 mmol/L (136-145); Triglyceride 68 mg/dL (<150)
== END 2024-06-23 09:50 | disposition home or self-care (01) ==
PROVIDERS: PCP Family Medicine; Visit Provider Family Medicine
DX: Z13.6 Encounter for screening for cardiovascular disorders (principal); E78.2 Mixed hyperlipidemia; I10 Essential (primary) hypertension
CPT/HCPCS: 36415; 80048; 80061

== ENCOUNTER 2024-06-25 00:48 | Outpatient (CLI) | payer MEDICARE, SELFPAY | END 2024-06-25 01:08 | LOC: DI 00:48 | PROVIDERS: PCP Family Medicine; Visit Provider Family Medicine | DX: Z12.31 Encounter for screening mammogram for malignant neoplasm of breast (principal); R92.323 Mammographic fibroglandular density, bilateral breasts | CPT/HCPCS: 77063; 77067 ==

== ENCOUNTER 2024-08-27 00:17 | Outpatient (CLI) | payer MEDICARE, SELFPAY ==
--- NOTE | 2024-08-27 06:45 | DI.DEXA_ITS ---
Exam(s) XR DEXA BONE DENSITY W/WO GALA EXAM: XR DEXA BONE DENSITY W/WO GALA CLINICAL HISTORY: Screening for osteoporosis, menopausal disorder,n95.9 TECHNIQUE: Routine DEXA evaluation of the lumbar spine, hip, or forearm. COMPARISON: CR XR DEXA BONE DENSITY W/WO GALA from 08/09/2022 FINDINGS: Performed on a [employer] unit. Lateral image: No compression fracture evident. Lumbar Spine total T-score: -0.6 which is normal range. Prior reading in July 2022 was also -0.6 Hip total T-score:-1.4 which is osteopenia range. Prior reading July 2022 was -1.5 Independent reading at the level of the femoral neck yields T-score of -1.8 which is osteopenia rang e. Forearm total T-score: 0.4 which is normal range. Reading in July 2022 was 0.3. IMPRESSION: Bone mineral density measures in the normal range for the lumbar spine and forearm. Fracture risk at these levels is low. Bone mineral density in the hip is osteopenia range. Fracture risk is moderat e in the hip. Note: Any spine fracture indicates 5x risk for subsequent spine fracture and 2x risk for subsequent h ip fracture. World Health Organization criteria for BMD interpretation classify patients: Normal...... T- Score at or above -1.0 Osteopenic... T- Score between -1.0 and -2.5 Osteoporosis... T-Score at or below -2.5
== END 2024-08-27 00:37 ==
LOC: DI 00:17
PROVIDERS: PCP Family Medicine; Visit Provider Family Medicine
DX: N95.9 Unspecified menopausal and perimenopausal disorder (principal); Z13.820 Encounter for screening for osteoporosis; M85.88 Other specified disorders of bone density and structure, other site
CPT/HCPCS: 77080

== ENCOUNTER → 2024-09-16 10:20 | Outpatient (BNVA) | payer MEDICARE, SELFPAY | PROVIDERS: PCP Family Medicine; Referring Provider Family Medicine; Visit Provider Physical Therapy Assistant | DX: Z12.11 Encounter for screening for malignant neoplasm of colon (principal); Z80.0 Family history of malignant neoplasm of digestive organs | CPT/HCPCS: S0285 ==

== ENCOUNTER 2024-09-27 07:37 | Day surgery (SDC) | payer MEDICARE, SELFPAY ==
--- NOTE | 2024-09-26 11:55 | W.PM.DSUDISC ---
Date of service: 09/27/24 Discharge Plan Disposition Patient Disposition: Home Condition: Good Discharge Details Reason For Visit: screening colonoscop Attending Provider: Twin Mendoza Primary Care Provider: Marielos Gee Home Meds and New Rx's Prescriptions: Continued timolol 0.25 % drops 1 drp OP BID atorvastatin 20 mg tablet 20 mg PO QHS Qty: 90 3RF losartan-hydrochlorothiazide 50-12.5 mg tablet 1 tab PO DAILY Qty: 90 3RF Discontinued bisacodyl [Dulcolax (bisacodyl)] 5 mg tablet,delayed release (DR/EC) 5 mg PO ONCE Qty: 4 0RF Rx Instructions: Take per colonoscopy instructions provided by ordering providers office polyethylene glycol 3350 17 gram/dose powder 17 g PO ONCE Qty: 238 0RF Rx Instructions: Take per colonoscopy instructions provided by ordering providers office Discharge Instructions Instructions: Diverticulosis Additional Instructions: Ami, it was very nice meeting you today, and I hope you are comfortable through the procedure. Everything went very smoothly. I saw no signs of any tumors or polyps today. Incidentally, you do have some diverticulosis. Diverticula occur when the muscular layer of the colon wall weakens as we age. This causes the inside lining to pocket or pooch outwards. These pockets are known as diverticula, and the condition of having them is called diverticulosis. Some patients experience pain related to this, typically in the left lower quadrant. When it is accompanied by fevers, and sense of illness, we refer to it as diverticulitis. Hopefully, years never bother you. I will attach some basic information here about typical approaches to diverticular management. If you have any questions at all, please do not hesitate to ask at any time. 1. If tolerated, consume a soft, low fiber diet for 1-2 days. 2[address] Do not drive, drink alcohol, operate machinery, make critical decisions, or do activities that require coordination or balance for 24 hours. 3. Because air was put into your colon during the procedure, expelling air from your rectum (passing gas or farting) is normal. 4. You may not have a bowel movement for 1-3 days because of the colonoscopy prep. This is normal. 5. Go directly to the emergency room if you notice any of the following: Develop chills (warm to touch), or if you have a thermometer and your temperature is above 101 Difficulty breathing or difficultly swallowing Persistent vomiting Severe abdominal pain, other than gas cramps Severe chest pain Black, tarry stools Any bleeding ? exceeding one tablespoon 6. Call your physician if the site where your intravenous was started becomes red, swollen, painful, and warm to touch. 7. Your physician has reviewed your pre-procedure medications. Please continue to take those medications as previously ordered. You will be given specific information/education regarding any changes to your medications before leaving. Stand Alone Forms: Anesthesia Discharge InstKameron Posey (DSU) Activity:: Activity as Tolerated Diet:: As Tolerated Discharge Orders Discharge Orders: Discharge Order (Routine); Ordered 09/26/24 Ordered By: Twin Mendoza DS: Diagnosis Discharge Diagnosis (1) Encounter for screening colonoscopy: Status: Acute Asessment and Plan: Negative screening colonoscopy; suggest 10-year interval follow-up
--- NOTE | 2024-09-26 11:56 | W.COLOREPORT ---
Date of service: 09/27/24 Time of Service: 09:56 Colonoscopy Report Date of procedure: 09/27/24 Pre-op diagnosis general: screening colonoscopy Post-op diagnosis procedure note: other (Diverticulosis; otherwise negative screening colonoscopy) Procedure: colonoscopy Surgeon: Twin Mendoza Anesthesia Type: General:No Airway Estimated blood loss (mL): 0 Pathology: none sent Complications: None Disposition: same day Indications: Ami is a 74 year old woman with a family history of [place] cancer who needs her next screening colonocsopy Prep: Miralax/Dulcolax Procedure Start Time: 09:34 Procedure End Time: 09:48 Retraction Time: 9 Findings: Sigmoid diverticulosis Procedure Description: After the induction of anesthesia, and with the patient in left lateral decubitus position, I began by performing an external anorectal exam.? Perineum and skin were normal, as was the anal verge.? There was no evidence of external hemorrhoids.? Next, I performed a digital rectal exam.? I did not appreciate any abnormal findings.? Next, I advanced a colonoscope into the rectal vault.? I performed retroflexion.? This appeared normal.? Using irrigation, I then advanced the colonoscope beyond the rectal folds and into the sigmoid colon before advancing towards the cecum.? The quality of the prep was excellent.? The scope was noted to be in the cecum by identification of the ileocecal valve and appendiceal orifice.? I then began withdrawing the colonoscope using repeated irrigation as necessary for full evaluation of the colonic mucosa. There is extensive sigmoid diverticulosis. ?Once the scope was withdrawn to the level of the rectum, great care was taken to examine portions of the rectal folds.? Finally, the scope was withdrawn and the patient was brought to the same-day surgery recovery unit as the anesthetic wore off. ?The findings and instructions were shared with the patient prior to discharge. Roosevelt Bowel Prep Roosevelt Bowel Prep Right Colon: 3 Left Colon: 3 Transverse Colon: 3 Total Score: 9
[2024-09-27 08:08] VITALS: BP 154/74; PULSE 54; RESP 16; TEMP 36.3; O2SAT 100
[2024-09-27] MEDS: Lactated Ringers 1,000 ML 80 ML IV (08:34)
--- NOTE | 2024-09-27 09:20 | W.ANESPRE ---
General Info Date of Service Date Performed: 09/27/24 Height: 5 ft 1 in Weight: 70.9 kg Body Mass Index (BMI): 29.5 Surgical Procedure: Operation Date: 09/27/24 09:05 Proposed Procedure Side Surgeon p Colonoscopy Twin Mendoza MD Actual Procedure Side Surgeon p Colonoscopy Not Applicable Twin Mendoza MD Pre-Op Diagnosis Post-Op Diagnosis screening colonoscopy Meds Allergies and Home Medications Allergies Allergy/AdvReac Type Severity Reaction Status Date / Time No Known Allergies Allergy Verified 09/27/24 08:02 Home Medication ?Medication ?Instructions ?Recorded atorvastatin 20 mg tablet 20 mg PO QHS #90 tabs 06/23/24 losartan 50 mg-hydrochlorothiazide 1 tab PO DAILY #90 tabs 06/23/24 12.5 mg tablet timolol 0.25 % eye drops 1 drp ophthalmic (eye) BID 06/23/24 Current Visit Medications: Current Medications Generic Name Dose Route Start Last Admin Trade Name Freq PRN Reason Stop Dose Admin Ringer's Solution 1,000 mls @ 80 mls/hr 09/27/24 06:00 09/27/24 08:34 IV 09/27/24 23:59 80 mls/hr INFUSION SUNDAR Administration IV Miscellaneous Supplies 1 each 09/27/24 06:00 Iv Access IV 09/27/24 23:59 DIRECTED SUNDAR Ondansetron HCl 4 mg 09/26/24 11:57 Ondansetron 4 Mg/2 Ml Vial IVP 10/26/24 11:56 Q4H PRN PRN Nausea / Vomiting Sodium Chloride 0 ml 09/27/24 06:00 Normal Saline Flush 10 Ml Syr IV 09/27/24 23:59 PRN PRN Sodium Chloride 0 ml 09/27/24 06:00 Normal Saline 10 Ml Vial IJ 09/27/24 23:59 DIRECTED PRN Sterile Water 0 ml 09/27/24 06:00 Water,Injection,Sterile 10 Ml Vial IJ 09/27/24 23:59 DIRECTED PRN PFSH Active Problems Active Problems: Problem Status Onset Code Encounter for screening colonoscopy Acute Z12.11 Osteopenia of hip Acute ~08/09/22 M85.859 Hyperlipidemia Chronic E78.5 Elevated IOP Chronic H40.059 Essential hypertension Chronic I10 Medical History Medical History Macular hole, right eye unchanged over time; ophtho follows pressures closely. Bradycardia chronic, mild, asymptomatic-no work-up indicated Tobacco Smoking/Tobacco Use Status: Never Passive smoking exposure: No Alcohol Alcohol Intake: current Alcohol intake frequency: a few times a month Alcohol type: beer, wine and hard liquor Substance Use Substance use: Never Substance use type: does not use Vital Signs and Lab Results Vital Signs Most Recent Vital Signs in EMR: Most Recent Vital Signs Temp Pulse Resp BP Pulse Ox 36.3 C L 54 L 16 154/74 H 100 09/27/24 08:08 09/27/24 08:08 09/27/24 08:08 09/27/24 08:08 09/27/24 08:08 Anesthesia Assessment and Plan Anesthesia History Personal History: No History of Anesthesia Complications Family History: No Family History of Anesthesia Complications Exercise Tolerance Exercise Tolerance: Metabolic Equivalents>4 Pertinent Negatives Pertinent Negatives: No Symptoms of GERD Cardiac & Pulmonary Exam Cardiac Exam: Normal S1/S2 Heart Sounds Pulmonary Exam: Clear Bilateral Breath Sounds Implantable Cardiac Device Does patient have a Pacemaker or an ICD?: No Airway Exam Known Difficult Airway: No Mallampati Class: 2 Mouth Opening: Normal (> 3cm) Thyromental Distance: Greater than 3 cm Neck Range of Motion: Full ROM Neck Circumference: Normal Teeth Condition: Normal Dentition ASA Classification ASA Score: ASA 2 Emergency Case?: No NPO Status NPO Status: NPO Clears >2 hours, Solids >8 hours Anesthesia Plan Resuscitation Status: Full Code Anesthesia Technique: General Anesthesia Airway Planned: Natural Airway Monitors Used: Standard Monitors
[2024-09-27 09:21] VITALS: BMI 29.5
[2024-09-27 09:53] VITALS: BP 105/55; PULSE 48; RESP 17; TEMP 35.9; O2SAT 96
--- NOTE | 2024-09-27 10:03 | W.ANESPOSTOP ---
Postoperative Evaluation Date, Time and Location Date Performed: 09/27/24 Time Performed: 10:03 Patient Location: Day Surgery Unit Vital Signs Most Recent Imported Vital Signs: Most Recent Vital Signs Temp Pulse Resp BP Pulse Ox 35.9 C L 48 L 17 105/55 L 96 09/27/24 09:53 09/27/24 09:53 09/27/24 09:53 09/27/24 09:53 09/27/24 09:53 Pain Score Most Recent Pain Score: Most Recent Pain Score Pain Level 0 09/27/24 09:53 Assessment Mental Status: Awake (Alert & Oriented to Patient Baseline) Airway and Respiratory Function: Patent airway with normal (patient baseline) respiratory exam Cardiovascular Function: Hemodynamically Stable Hydration Status: Adequately Hydrated Nausea & Vomiting: No Nausea or Vomiting Pain: Pt. Denies Any Pain Peripheral Nerve Block: Patient did not receive a nerve block
[2024-09-27 10:26] VITALS: BP 127/70; PULSE 49; RESP 16; TEMP 36.4; O2SAT 97
== END 2024-09-27 10:31 | disposition home or self-care (01) ==
LOC: SUR 07:37
PROVIDERS: PCP Family Medicine; Visit Provider Surgery
PROC: 0DJD8ZZ Inspection of Lower Intestinal Tract, Via Natural or Artificial Opening Endoscopic (ICD-10-PCS; CPT 45378; principal; 2024-09-27 09:00)
DX: Z12.11 Encounter for screening for malignant neoplasm of colon (principal); Z80.0 Family history of malignant neoplasm of digestive organs; K57.30 Diverticulosis of large intestine without perforation or abscess without bleeding
CPT/HCPCS: G0105; J2003; J2704